=== PATIENT | female | born 1990 ===

== ENCOUNTER → 2017-06-16 14:08 | Outpatient (CLI) | payer OTHER ==
[~2017-06-16] VITALS: Ht 152.4 cm; Wt 49.0 kg
== END | disposition home or self-care (01) ==
LOC: PPHC 14:08
DX: R05 Cough (principal); J06.9 Acute upper respiratory infection, unspecified

== ENCOUNTER 2018-05-26 10:18 | Emergency (ER) | payer OTHER ==
[~2018-05-26] VITALS: Ht 162.6 cm; Wt 49.9 kg
[2018-05-26] MEDS ORDERED: ZANTAC150 MG PO (13:46)
[2018-05-26] MEDS ORDERED: OMEPRAZOLE40 MG PO (13:46)
== END 2018-05-26 14:46 | disposition home or self-care (01) ==
LOC: ER 10:18
DX: K29.70 Gastritis, unspecified, without bleeding (principal)

== ENCOUNTER 2018-08-02 08:40 | Emergency (ER) | payer OTHER ==
[~2018-08-02] VITALS: Ht 152.4 cm; Wt 46.7 kg
[~2018-08-02 08:40] MED LIST: OMEPRAZOLE40 MG PO; ZANTAC150 MG PO
== END 2018-08-02 12:53 | disposition home or self-care (01) ==
LOC: ER 08:40
DX: B34.9 Viral infection, unspecified (principal); R11.2 Nausea with vomiting, unspecified; R10.84 Generalized abdominal pain